=== PATIENT | male | born 1970 | race Caucasian/White ===

== ENCOUNTER 2020-08-31 12:38 | Emergency (ER) | payer OTHER, SELFPAY ==
[2020-08-31 12:42] VITALS: BP 130/79; PULSE 104; RESP 16; TEMP 37.1; O2SAT 97; BMI 23.7
--- NOTE | 2020-08-31 14:02 | ED_ITS ---
HPI - Extremity Problem General Chief complaint: Extremity Injury, Upper Stated complaint: FRACTURE Time Seen by Provider: 08/31/20 13:04 Source: patient Mode of arrival: ambulatory Limitations: no limitations History of Present Illness HPI Narrative: 49-year-old male presenting after being seen at the [facility] on and having a CT scan of his scapula left-sided and his thoracic spine without contrast which revealed a nondisplaced fracture involving the left scapula above the spinous process extending superiorly. The inferior half of the scapula, glenoid and neck coracoid process appears intact. The AC joint and the glenohumeral joint is not in normal alignment. There is no dislocation or subluxation seen. There is likely minimal soft tissue swelling in the subscapular space secondary to fracture. Unremarkable thoracic spine exam only chronic changes no acute processes noted. Therefore they sent him here for further evaluation and treatment. Patient reports that while he was at work today they were removing a fire hydrant and they put it in the trash and when he was turned around somehow the fire hydrant came out of the trash bin and hit him on the left shoulder where he almost fell but did not. Denies any other injuries complaints or concerns at this time. Related Data Previous Rx's Medication Instructions Recorded cyclobenzaprine 10 mg PO TID PRN #10 tab 08/31/20 ibuprofen 800 mg PO Q8H PRN #14 tab 08/31/20 oxycodone-acetaminophen [Percocet] 1 tab PO Q6H PRN #14 tab 08/31/20 Allergies Allergy/AdvReac Type Severity Reaction Status Date / Time No Known Allergies Allergy Verified 08/31/20 12:51 Review of Systems Review of Systems: Constitutional : No Fever, No Chills ENT/Mouth : No Ear Pain, No Hoarseness, No sore throat Eyes: No Eye Pain, No Swelling, No Redness, No Foreign Body Cardiovascular : No Chest Pain, No SOB Respiratory : No Cough, No Dyspnea Gastrointestinal : No Nausea, No Vomiting, No Diarrhea, No abdominal Pain Genitourinary : No Dysuria, No Hematuria Musculoskeletal : + joint pain, No Myalgias, No Joint Swelling Skin : No Skin lacerations, No rash Neuro : No Weakness, No Numbness, No Paresthesias, No Loss of Consciousness, No Dizziness, No Headache Psych : No Anxiety/Panic, No Depression Heme/Lymph: no easy bruising, no Lymphadenopathy Endocrine : No Polyuria, No Polydipsia Yes all other systems are reviewed and are negative [facility] Past Medical History Attestation statement: The following information was validated with the patient. Medical History No known health problems Social History Social History Advance Directives: No Advance Directives Information Provided: No Physical Exam Vital Signs: Vital Signs: Last Vital Signs Temp 98.8 F 08/31/20 12:42 Pulse 104 H 08/31/20 12:42 Resp 16 08/31/20 12:42 BP 130/79 08/31/20 12:42 Pulse Ox 97 08/31/20 12:42 Body Mass Index 23.7 vital signs have been reviewed as normal and appeared to be correct. Blood pressure normal. Heart rate normal. Respiration rate normal. Temperature normal. Oxygen saturation normal. Appearance: Alert. Oriented X3. No acute distress. Head: Normal external exam. Normocephalic. Atraumatic. No Wing signs noted. No raccoon eyes noted Eyes: PERRLA. EOMI. Conjunctiva and sclera normal. Eyelids normal. ENT: Pharynx normal. Uvula midline. Moist mucous membranes. No trismus noted. No drooling noted. No muffled voice noted. Neck: Normal inspection. Neck supple. FROM. No adenopathy. No meningeal signs. CVS: Normal heart rate and rhythm. Heart sound normal. No murmurs noted. Pulses normal throughout. Respiratory: No respiratory distress. Painless inspiration. Breath sounds normal. No wheezes/rales/rhonchi noted. Chest nontender. No accessory muscle usage noted or decreased air movement noted. Back: Full range of motion noted. Skin: Skin warm and dry. Normal skin color. Normal skin turgor. No rashes/lesions/lacerations noted. Extremities: To left posterior scapula patient has mild soft tissue swelling and ecchymosis and tender to palpation. Otherwise patient has normal range of motion to left shoulder joint and all other Extremities exhibit normal range of motion and nontender. Neuro: Oriented X 3. No motor deficit. No sensory deficit. Reflexes normal. Course Course Course Narrative: 49-year-old male presenting to the ED after work related injury where a fire hydrant came out of the trash after they dumped it and hit him in the left scapula. Patient was seen and Work [facility] and had a CT scan of left scapula and thoracic spine and has a nondisplaced fracture of the scap [place]. I consulted with AYAKA Kaye who reviewed the films of the CT scans with Dr. Ortega and they are recommending sending the patient home with a sling and follow-up and symptomatic treatment. Therefore I discussed this with the patient printed out a copy of the patient's report given to the patient will DC home after he has a sling on instructions to follow-up with orthopedics and a work note. Patient understands agrees the plan. See below for the patient's CT scan results MDM - Extremity (Nontraumatic) Medical Records Attestation: I reviewed the patient's medical records. Discharge Plan Discharge Clinical Impression: Fracture of scapula Qualifiers: Encounter type: initial encounter Fracture type: closed Fracture alignment: nondisplaced Laterality: left Patient Disposition: Home, Self-Care Instructions: Scapular Fracture (ED), How to Use a Sling (ED) Prescriptions: New cyclobenzaprine 10 mg tablet 10 mg PO TID PRN (Reason: muscle spasm) Qty: 10 RF: 0 ibuprofen 800 mg tablet 800 mg PO Q8H PRN (Reason: pain) Qty: 14 RF: 0 oxycodone-acetaminophen [Percocet] 5-325 mg tablet 1 tab PO Q6H PRN (Reason: pain) Qty: 14 RF: 0 Referrals: Zeke Ortega MD [Physician] - 2 days (Call tomorrow for follow-up within 1 week) Stand Alone Forms: Work/School Release Print Language: Sami
== END 2020-08-31 14:41 | disposition home or self-care (01) ==
PROVIDERS: Emergency Provider Emergency Medicine
DX: S42.102A Fracture of unspecified part of scapula, left shoulder, initial encounter for closed fracture (principal); M25.512 Pain in left shoulder; Y29.XXXA Contact with blunt object, undetermined intent, initial encounter; Y93.9 Activity, unspecified; Y92.9 Unspecified place or not applicable; Y99.0 Civilian activity done for income or pay; Z79.899 Other long term (current) drug therapy
CPT/HCPCS: 99283; 99284

== ENCOUNTER → 2020-08-31 | Outpatient (BNVA) | payer OTHER, SELFPAY | PROVIDERS: Visit Provider Internal Medicine | DX: S29.8XXA Other specified injuries of thorax, initial encounter (principal); S42.102A Fracture of unspecified part of scapula, left shoulder, initial encounter for closed fracture; W22.8XXA Striking against or struck by other objects, initial encounter; G72.89 Other specified myopathies | CPT/HCPCS: 72128; 73200 ==

== ENCOUNTER → 2020-09-04 13:17 | Outpatient (BNVA) | payer OTHER, SELFPAY | PROVIDERS: Visit Provider Physician Assistant | DX: S42.109A Fracture of unspecified part of scapula, unspecified shoulder, initial encounter for closed fracture (principal) | CPT/HCPCS: 99202 ==

== ENCOUNTER 2020-09-14 13:52 | Outpatient (REF) | payer OTHER, SELFPAY ==
--- NOTE | 2020-09-14 14:15 | XR_ITS ---
EXAMINATION: XR SHOULDER, LEFT CLINICAL INFORMATION: Left shoulder pain. COMPARISON: None TECHNIQUE: AP external rotation, Grashey, scapular Y, and axillary views of the left shoulder. FINDINGS: The bones and soft tissues are normal. No fracture. Glenohumeral and acromioclavicular alignment is anatomic with normal joint space. No abnormal soft tissue calcifications. XR/XR shoulder LT min 2V IMPRESSION: Unremarkable left shoulder exam.
== END 2020-09-14 13:53 | disposition home or self-care (01) ==
LOC: HO.XRAY 13:52
PROVIDERS: Visit Provider Physician Assistant
DX: S42.102D Fracture of unspecified part of scapula, left shoulder, subsequent encounter for fracture with routine healing (principal)
CPT/HCPCS: 73030; 99212

== ENCOUNTER 2020-09-28 13:05 | Outpatient (REF) | payer OTHER, SELFPAY ==
--- NOTE | ~2020-09-28 | XR_ITS ---
EXAMINATION: XR SHOULDER, LEFT CLINICAL INFORMATION: Scapula fracture COMPARISON: CT of the left shoulder 08/31/2020 and x-ray of the left shoulder 09/14/2020 TECHNIQUE: AP external rotation, Grashey, scapular Y, and axillary views of the left shoulder. FINDINGS: There is a lucency seen in the body of the scapula partially overlying the left anterior second rib on the first image questionable for nondisplaced fracture. The nondisplaced fracture of the spine of the scapula seen by CT is not evident by x-ray. The joint spaces are normal. Soft tissues are normal. XR/XR shoulder LT min 2V IMPRESSION: Question nondisplaced fracture of the body of the scapula overlying the left anterior second rib.
== END 2020-09-28 13:06 | disposition home or self-care (01) ==
LOC: HO.XRAY 13:05
PROVIDERS: Visit Provider Physician Assistant
DX: S42.109A Fracture of unspecified part of scapula, unspecified shoulder, initial encounter for closed fracture (principal)
CPT/HCPCS: 73030; 99212